=== PATIENT | male | born 2000 | race Caucasian/White ===

== ENCOUNTER → 2025-01-21 13:09 | Outpatient (REF) | payer OTHER, SELFPAY | LOC: RAD 13:09 | PROVIDERS: ATTENDING PHYSICIAN Nurse Practitioner Family | DX: M25.562 Pain in left knee (principal) | CPT/HCPCS: 73564 ==

== ENCOUNTER → 2025-01-26 10:26 | Outpatient (REF) | payer OTHER, SELFPAY | LOC: PAVMRI 10:26 | PROVIDERS: ATTENDING PHYSICIAN Nurse Practitioner Family; REFERRING PHYSICIAN Orthopaedic Surgery | DX: M25.562 Pain in left knee (principal) | CPT/HCPCS: 73721 ==

== ENCOUNTER 2025-03-01 06:24 | Day surgery (SDC) | payer OTHER, SELFPAY ==
[2025-03-01] VITALS (8 sets, daily range): BP systolic 124–145; BP diastolic 67–79; BMI 34.9
[2025-03-01] MEDS: TYLENOL 1000 MG PO (10:02)
[2025-03-01] MEDS: CELEBREX 200 MG PO (10:02)
[2025-03-01] MEDS: NORMOSOL-R/PLASMALYTE-A 1000 IV (10:02)
== END 2025-03-01 15:34 | disposition home or self-care (01) ==
LOC: SDS 06:24
PROVIDERS: ATTENDING PHYSICIAN Orthopaedic Surgery
DX: S83.512A Sprain of anterior cruciate ligament of left knee, initial encounter (principal); S83.242A Other tear of medial meniscus, current injury, left knee, initial encounter; X58.XXXA Exposure to other specified factors, initial encounter; M23.42 Loose body in knee, left knee
CPT/HCPCS: 29888; C1713

== ENCOUNTER 2025-03-26 09:14 | Outpatient (RCR) | payer OTHER, SELFPAY | END 2025-03-26 23:59 | disposition home or self-care (01) | LOC: RPT 09:14 | PROVIDERS: ATTENDING PHYSICIAN Physician Assistant Medical; FAMILY PHYSICIAN Nurse Practitioner Family | DX: Z47.89 Encounter for other orthopedic aftercare (principal); M25.562 Pain in left knee; Z73.6 Limitation of activities due to disability; R26.2 Difficulty in walking, not elsewhere classified; M62.81 Muscle weakness (generalized) | CPT/HCPCS: 97110; 97162 ==

== ENCOUNTER 2025-04-24 17:16 | Outpatient (RCR) | payer OTHER, SELFPAY | END 2025-04-24 23:59 | disposition home or self-care (01) | LOC: RPT 17:16 | PROVIDERS: ATTENDING PHYSICIAN Physician Assistant Medical; FAMILY PHYSICIAN Nurse Practitioner Family | DX: Z47.89 Encounter for other orthopedic aftercare (principal); M25.562 Pain in left knee; Z73.6 Limitation of activities due to disability; R26.2 Difficulty in walking, not elsewhere classified; M62.81 Muscle weakness (generalized) | CPT/HCPCS: 97110; 97112; 97530 ==

== ENCOUNTER 2025-05-01 17:13 | Outpatient (RCR) | payer OTHER, SELFPAY | END 2025-05-01 23:59 | disposition home or self-care (01) | LOC: RPT 17:13 | PROVIDERS: ATTENDING PHYSICIAN Physician Assistant Medical; FAMILY PHYSICIAN Nurse Practitioner Family | DX: Z47.89 Encounter for other orthopedic aftercare (principal); M25.562 Pain in left knee; Z73.6 Limitation of activities due to disability; R26.2 Difficulty in walking, not elsewhere classified; M62.81 Muscle weakness (generalized) | CPT/HCPCS: 97110; 97112; 97530 ==

== ENCOUNTER 2025-06-17 17:01 | Outpatient (RCR) | payer OTHER, SELFPAY | END 2025-06-17 23:59 | disposition home or self-care (01) | LOC: RPT 17:01 | PROVIDERS: ATTENDING PHYSICIAN Physician Assistant Medical; FAMILY PHYSICIAN Nurse Practitioner Family | DX: Z47.89 Encounter for other orthopedic aftercare (principal); M25.562 Pain in left knee; Z73.6 Limitation of activities due to disability; R26.2 Difficulty in walking, not elsewhere classified; M62.81 Muscle weakness (generalized) | CPT/HCPCS: 97110 ==